=== PATIENT | male | born 1970 | race Caucasian/White ===

== ENCOUNTER 2016-09-05 10:32 | Emergency (ER) | payer BC ==
[~2016-09-05] VITALS: Ht 182.9 cm; Wt 76.2 kg
[~2016-09-05 10:32] MED LIST: ACULAR 0.5100 DROP/5 BOTH EYES; ALBUTEROL SULF8.5 GM IH; ERYTHROMYC1 APPLICAT BOTH EYES; FLEXERIL10 MG PO; HYDROCODON-ACE1 EAC7 PO; MOTRIN400 MG PO; NOHOMEMEDS; PERCOCET 5/31 TABLET PO; SIMVASTATIN20 MG PO; SPIRIVA1 INHALATI IH; TRAMADOL HCL50 MG PO; ZOFRAN4 MG PO
[2016-09-05] MEDS ORDERED: PERCOCET 5/31 TABLET PO (12:15)
[2016-09-05] MEDS ORDERED: BACTRIM,SEPT1 TABLET PO (12:17)
[2016-09-05 12:43] VITALS: BP 118/76
== END 2016-09-05 12:44 | disposition home or self-care (01) ==
LOC: EME 10:32 → EXP 10:32
DX: S92.531A Displaced fracture of distal phalanx of right lesser toe(s), initial encounter for closed fracture (principal); W20.8XXA Other cause of strike by thrown, projected or falling object, initial encounter; Y99.0 Civilian activity done for income or pay; Z88.0 Allergy status to penicillin; Z88.6 Allergy status to analgesic agent
CPT/HCPCS: 73630; 99281; 99283

== ENCOUNTER 2017-01-04 07:17 | Emergency (ER) | payer BC ==
[~2017-01-04] VITALS: Ht 182.9 cm; Wt 79.5 kg
[~2017-01-04 07:17] MED LIST changes: +BACTRIM,SEPT1 TABLET PO
[2017-01-04] MEDS ORDERED: FLEXERIL10 MG PO (09:24)
[2017-01-04] MEDS ORDERED: PREDNISONE20 MG PO (09:24)
[2017-01-04 10:13] VITALS: BP 144/84
== END 2017-01-04 10:22 | disposition home or self-care (01) ==
LOC: EME 07:17
DX: M54.6 Pain in thoracic spine (principal); Z88.1 Allergy status to other antibiotic agents; Z88.0 Allergy status to penicillin; Z87.891 Personal history of nicotine dependence; Z88.6 Allergy status to analgesic agent
CPT/HCPCS: 72070; 99281; 99284; J2270; J7512

== ENCOUNTER 2017-03-14 07:13 | Emergency (ER) | payer BC ==
[~2017-03-14] VITALS: Ht 182.9 cm; Wt 79.0 kg
[~2017-03-14 07:13] MED LIST changes: +PREDNISONE20 MG PO
[2017-03-14] MEDS ORDERED: MOTRIN800 MG PO (08:28)
[2017-03-14 08:35] VITALS: BP 120/78
== END 2017-03-14 08:37 | disposition home or self-care (01) ==
LOC: EME 07:13
DX: S93.402A Sprain of unspecified ligament of left ankle, initial encounter (principal); X50.1XXA Overexertion from prolonged static or awkward postures, initial encounter; Z88.0 Allergy status to penicillin; Z88.1 Allergy status to other antibiotic agents
CPT/HCPCS: 73610; 99281; 99283

== ENCOUNTER 2018-02-19 06:43 | Observation (INO) | payer BC ==
[~2018-02-19] VITALS: Ht 182.9 cm; Wt 77.0 kg
[~2018-02-19 06:43] MED LIST changes: +MOTRIN800 MG PO
[2018-02-19 07:42] LABS: HEMATOCRIT 43.6 % (38.0-50.0); HEMOGLOBIN 15.3 G/DL (12.5-16.6); MCH 29.9 PG (29.0-34.0); MCHC 35.1 G/DL (30.0-36.0); MCV 85.3 FL (86-99); PLATELET COUNT 307 K/uL (156-360); RBC DIS.WIDTH-CV 12.2 % (11.8-14.6); RBC DIS.WIDTH-SD 37.8 % (39-53); RED BLOOD COUNT 5.11 M/uL (4.00-5.50); WHITE BLOOD COUNT 6.3 K/uL (4.1-10.2)
[2018-02-19 08:00] LABS: CHLORIDE 103 MEQ/L (99-109); CREATININE 0.9 MG/DL (0.6-1.3); GFR ESTIMATE (CALCULATED) > 59 mL/min/ (58.99-99999); GLUCOSE 130 mg/dL (70-99); POTASSIUM 3.5 MEQ/L (3.7-5.4); SODIUM 136 MEQ/L (136-147); TROP-I INTERPRETATION NEGATIVE; TROPONIN-I < 0.01 ng/mL (0.0-0.30); UREA NITROGEN (BUN) 12 mg/dL (9-23)
[2018-02-19] MEDS ORDERED: SULFAZINE500 MG PO (09:28)
[2018-02-19] MEDS ORDERED: TYLENOL EXTRA500 MG PO (09:29)
[2018-02-19 10:57] VITALS: BP 126/73
[2018-02-19 12:34] LABS: TROP-I INTERPRETATION NEGATIVE; TROPONIN-I < 0.01 ng/mL (0.0-0.30)
[2018-02-19 15:46] VITALS: BP 126/61
[2018-02-19 18:26] LABS: TROP-I INTERPRETATION NEGATIVE; TROPONIN-I < 0.01 ng/mL (0.0-0.30)
[2018-02-19 20:13] VITALS: BP 111/56
[2018-02-20 00:03] VITALS: BP 100/56
[2018-02-20 05:23] VITALS: BP 119/87
[2018-02-20 06:00] LABS: HEMATOCRIT 42.4 % (38.0-50.0); MCV 87.8 FL (86-99); PLATELET COUNT 260 K/uL (156-360); RBC DIS.WIDTH-CV 12.4 % (11.8-14.6); RBC DIS.WIDTH-SD 39.9 % (39-53); RED BLOOD COUNT 4.83 M/uL (4.00-5.50); WHITE BLOOD COUNT 7.1 K/uL (4.1-10.2)
[2018-02-20 06:15] LABS: INTER. NORMALIZED RATIO 1.1
[2018-02-20 06:18] LABS: PTT 29.8 SEC (25-37)
[2018-02-20 06:31] LABS: ALBUMIN 3.8 G/DL (3.2-4.8); ALKALINE PHOSPHATASE 76 IU/L (3-129); ALT (GPT) 18 IU/L (3-49); AST (GOT) 12 IU/L (2-34); CHLORIDE 102 MEQ/L (99-109); CREATININE 0.9 MG/DL (0.6-1.3); GFR ESTIMATE (CALCULATED) > 59 mL/min/ (58.99-99999); GLUCOSE 133 mg/dL (70-99); POTASSIUM 3.8 MEQ/L (3.7-5.4); SODIUM 136 MEQ/L (136-147); TOTAL BILIRUBIN 0.4 MG/DL (0.0-1.0); UREA NITROGEN (BUN) 11 mg/dL (9-23)
[2018-02-20 08:29] VITALS: BP 126/69
[2018-02-20 08:36] VITALS: BP 126/69
[2018-02-20] MEDS ORDERED: ASPIR-LOW81 MG PO (10:54)
== END 2018-02-20 11:20 | disposition home or self-care (01) ==
LOC: EME 06:43 → EDOF 09:38 → 4SOUTH 09:38 → ENRESERV 09:40 → 4SOUTH 10:55
PROVIDERS: Emergency Medicine; Physician Assistant
DX: R07.9 Chest pain, unspecified (principal); K51.90 Ulcerative colitis, unspecified, without complications; J44.9 Chronic obstructive pulmonary disease, unspecified; I45.10 Unspecified right bundle-branch block; Z98.890 Other specified postprocedural states; Z79.01 Long term (current) use of anticoagulants; Z79.82 Long term (current) use of aspirin; Z82.49 Family history of ischemic heart disease and other diseases of the circulatory system; Z79.899 Other long term (current) drug therapy; Z87.891 Personal history of nicotine dependence; Z88.0 Allergy status to penicillin; Z88.1 Allergy status to other antibiotic agents; Z88.5 Allergy status to narcotic agent; Z88.8 Allergy status to other drugs, medicaments and biological substances
CPT/HCPCS: 71045; 71275; 80048; 80053; 83880; 84484; 85027; 85610; 85730; 93005; G0378; J1170; J1644; J2270; J2405